=== PATIENT | female | born 1980 | race Caucasian/White ===

== ENCOUNTER 2016-12-23 23:14 | Emergency (ER) | payer OTHER ==
[2016-12-23 23:37] VITALS: RESP 18; TEMP 98
[2016-12-24] MEDS ORDERED: IBUPROFEN 600 MG TAB PO STA (00:35)
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
--- NOTE | 2016-12-24 01:36 | XR ---
EXAM: XR Left Foot Complete, 3 or More Views. CLINICAL HISTORY: Reason: Pain TECHNIQUE: Frontal, lateral and oblique views of the left foot. COMPARISON: No relevant prior studies available. FINDINGS: Bones/joints: Unremarkable. No acute fracture. No dislocation. Tiny achilles enthesophyte. Soft tissues: Unremarkable. No radiopaque foreign body. IMPRESSION: Normal left foot x-rays.
--- NOTE | 2016-12-24 01:36 | XR ---
EXAM: XR Left Knee, 3 views. CLINICAL HISTORY: Reason: Pain TECHNIQUE: Three views of the left knee. COMPARISON: No relevant prior studies available. FINDINGS: Bones/joints: Unremarkable. No acute fracture. No dislocation. Soft tissues: Unremarkable. IMPRESSION: Normal left knee x-rays.
[2016-12-24 02:28] VITALS: BP 167/89; PULSE 79
== END 2016-12-24 02:22 | disposition home or self-care (01) ==
LOC: EC 23:14
DX: S93.602A Unspecified sprain of left foot, initial encounter (principal); S80.02XA Contusion of left knee, initial encounter; W10.9XXA Fall (on) (from) unspecified stairs and steps, initial encounter
CPT/HCPCS: 99283

== ENCOUNTER → 2021-05-18 | Outpatient (CLI) | payer OTHER ==
--- NOTE | 2021-05-20 11:48 | MM ---
Reason for exam: screening (asymptomatic). Baseline mammogram. History: Patient has history of other cancer at age 20. Family history of breast cancer in maternal grandmother at age 5. Took hormonal contraceptives for 1 year beginning at age 21. Physical Findings: Nurse did not find any significant physical abnormalities on exam. MG Screening Mammo w CAD Bilateral CC and MLO view(s) were taken. There are scattered fibroglandular densities. There is no discrete abnormality. ASSESSMENT: Benign, BI-RAD 2 RECOMMENDATION: Routine screening mammogram of both breasts in 1 year.
== END | disposition home or self-care (01) ==
LOC: RADMAMWWP 14:33
PROVIDERS: ATTEND Obstetrics & Gynecology
DX: Z12.31 Encounter for screening mammogram for malignant neoplasm of breast (principal); Z85.9 Personal history of malignant neoplasm, unspecified; Z80.3 Family history of malignant neoplasm of breast; Z79.3 Long term (current) use of hormonal contraceptives
CPT/HCPCS: 77067

== ENCOUNTER → 2022-04-24 | Outpatient (CLI) | payer OTHER ==
--- NOTE | 2022-04-24 13:07 | CT ---
EXAMINATION TYPE: CT abdomen pelvis wo con CT DLP: 1394.4 mGycm, Automated exposure control for dose reduction was used. DATE OF EXAM: 04/24/2022 12:47 PM COMPARISON: None. CLINICAL INDICATION:Female, 41 years old with history of Right side abd pain R10.9; TECHNIQUE: Standard CT of the abdomen and pelvis following the administration of oral contrast. Cor onal and sagittal reformats were performed. FINDINGS: Limited examination due to lack of IV contrast. LOWER CHEST: Unremarkable ABDOMEN LIVER: Unremarkable noncontrast appearance. GALLBLADDER AND BILE DUCTS: Calcified gallstone identified. No surrounding inflammatory changes. No b iliary ductal dilatation. PANCREAS: Unremarkable noncontrast appearance. SPLEEN: Unremarkable noncontrast appearance. ADRENAL GLANDS: Unremarkable noncontrast appearance. KIDNEYS AND URETERS: No evidence of hydronephrosis or renal calculus. Lobulated appearance of the rig ht kidney. PELVIS BLADDER: Incompletely distended but grossly unremarkable. REPRODUCTIVE: Unremarkable. ABDOMEN & PELVIS STOMACH AND BOWEL: Stomach and duodenum are unremarkable. Enteric contrast reaches the splenic flexur e. There is a structure that appears to be the appendix which is not dilated or has any inflammatory changes. No focal wall thickening. No pneumatosis or portal venous gas. No colonic diverticulosis. No evidence of bowel obstruction. PERITONEUM: No evidence of pneumoperitoneum or free fluid. VASCULATURE: No evidence of aortic aneurysm. MUSCULOSKELETAL: No acute osseous abnormalities LYMPH NODES: No gross evidence for lymphadenopathy. SOFT TISSUE/ABDOMINAL WALL: Small fat filled umbilical hernia. IMPRESSION: 1. No acute abdominal/pelvic process. 2. Cholelithiasis.
== END | disposition home or self-care (01) ==
LOC: RADCTMAIN 10:58
PROVIDERS: ATTEND Family Medicine
DX: K80.20 Calculus of gallbladder without cholecystitis without obstruction (principal)
CPT/HCPCS: 74176

== ENCOUNTER → 2022-06-16 | Outpatient (CLI) | payer OTHER ==
--- NOTE | 2022-06-16 14:48 | US ---
EXAMINATION TYPE: US pelvic complete DATE OF EXAM: 06/16/2022 COMPARISON: NONE CLINICAL HISTORY: N93.8 DYSPUNCTIONAL BLEEDING. DUB x 1 year, tubal ligation, pre ablation US TECHNIQUE: TA. Transabdominal sonographic images of the pelvis were acquired. Date of LMP: unknown EXAM MEASUREMENTS: Uterus: 10.9 x 5.4 x 3.9 cm Endometrial Stripe: 1.2 cm Right Ovary: 2.4 x 1.5 x 1.9 cm Left Ovary: 2.2 x 2.0 x 1.3 cm 1. Uterus: Anteverted wnl 2. Endometrium: wnl 3. Right Ovary: wnl 4. Left Ovary: wnl 5. Bilateral Adnexa: wnl 6. Posterior cul-de-sac: wnl IMPRESSION: No discrete abnormality appreciated.
[2022-06-17 00:56] LABS: HCT 40.2 % (37.2-46.3); HGB 12.1 g/dL (12.0-15.0); MCH 24.2 pg (27.0-32.0); MCHC 30.1 g/dL (32.0-37.0); MCV 80.4 fL (80.0-97.0); Mean Platelet Volume 9.7 fL (9.5-12.2); NRBC Per 100 WBC 0 /100 WBCS (0.0-0.0); Platelet Count 315 X 10*3/uL (140-440); RDW 15.1 % (11.5-14.5); T4, Free (Free Thyroxine) 2.05 ng/dL (0.800-1.800)
== END | disposition home or self-care (01) ==
LOC: RADUSWWP 14:12
PROVIDERS: ATTEND Obstetrics & Gynecology
DX: N93.8 Other specified abnormal uterine and vaginal bleeding (principal)
CPT/HCPCS: 76856; 84439; 84443; 85027

== ENCOUNTER → 2022-08-12 | Outpatient (CLI) | payer OTHER ==
[2022-08-12 16:18] LABS: Basophils # (A) 0.03 X 10*3/uL (0.00-0.10); Basophils % (A) 0.4 %; Eosinophils # (A) 0.17 X 10*3/uL (0.04-0.35); Eosinophils % (A) 2.3 %; HCT 42.6 % (37.2-46.3); HGB 12.9 g/dL (12.0-15.0); Immature Grans, Automated 0.1 %; Lymphocytes # (A) 2.02 X 10*3/uL (0.90-5.00); MCH 23.5 pg (27.0-32.0); MCHC 30.3 g/dL (32.0-37.0); MCV 77.5 fL (80.0-97.0); Mean Platelet Volume 10.3 fL (9.5-12.2); Monocytes # (A) 0.58 X 10*3/uL (0.20-1.00); Monocytes % (A) 7.7 %; NRBC Per 100 WBC 0 /100 WBCS (0.0-0.0); Neutrophils # (A) 4.68 X 10*3/uL (1.80-7.70); Neutrophils % (A) 62.5 %; Platelet Count 357 X 10*3/uL (140-440); RDW 15.3 % (11.5-14.5); WBC 7.49 X 10*3/uL (4.50-10.00)
== END | disposition home or self-care (01) ==
LOC: LABWHC1 11:53
PROVIDERS: ATTEND Obstetrics & Gynecology
DX: Z01.812 Encounter for preprocedural laboratory examination (principal)
CPT/HCPCS: 36415; 85025

== ENCOUNTER 2022-08-18 06:19 | Day surgery (SDC) | payer OTHER ==
[2022-08-15 15:43] VITALS: BMI 43.8
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
[~2022-08-18 06:19] MED LIST: Pre Op ABX Message 1 EACH MISC MISCELLANE ONE
[2022-08-18] MEDS ORDERED: ONDANSETRON 4 MG/2 ML VIAL IVP ONE (06:31)
[2022-08-18] MEDS ORDERED: MIDAZOLAM 2 MG/2 ML VIAL IV PRN (06:31)
[2022-08-18] MEDS ORDERED: DEXAMETHASONE SOD PHOSPHATE 4 MG/ML 1 ML VIAL IV ONE (06:31)
[2022-08-18] MEDS ORDERED: SCOPOLAMINE 1 MG/72 HR PATCH TRANSDERM ONE (06:31)
[2022-08-18] MEDS ORDERED: LACTATED RINGERS 1,000 ML IV SCH (06:31)
[2022-08-18] MEDS ORDERED: PROPOFOL 10 MG/ML 20 ML VIAL IV ONE (07:10)
[2022-08-18] MEDS ORDERED: LIDOCAINE 2% INJ 20 MG/ML (2 ML VIAL) ONE (07:10)
[2022-08-18] MEDS ORDERED: SUCCINYLCHOLINE CHLORIDE 200 MG/10 ML VIAL IV ONE (07:10)
[2022-08-18] MEDS ORDERED: fentaNYL (PF) 50 MCG/ML 2 ML AMP ONE (07:10)
[2022-08-18] MEDS ORDERED: MIDAZOLAM 2 MG/2 ML VIAL ONE (07:10)
[2022-08-18] MEDS ORDERED: KETOROLAC 15 MG/ML 1 ML VIAL ONE (07:10)
--- NOTE | 2022-08-18 07:38 | P.OP ---
Date of Procedure: 08/18/22 Preoperative Diagnosis: Dysfunctional uterine bleeding Postoperative Diagnosis: Same Procedure(s) Performed: Dilation and curettage with hysteroscopy and NovaSure endometrial ablation Anesthesia: DESTINI Surgeon: Radha Schaffer Estimated Blood Loss (ml): 5 Pathology: other (Endometrial curettings) Condition: stable Disposition: same day Indications for Procedure: This is a 41-year-old female 3 para 3 who presents for dilation and curettage with hysteroscopy and NovaSure endometrial ablation due to dysfunctional uterine bleeding. She complains of very heavy bleeding with cramping and a lot of clots during her cycles. Sometimes her menses are up to 1 week late and sometimes she has bleeding that lasts up to 14 days. This has been occurring for approximately 1 year. Her pelvic ultrasound showed a uterus measuring 10.9 x 5.4 x 3.9 cm with an endometrial stripe thickness of 1.2 cm. Both ovaries appeared normal. She has previously had a tubal ligation. Operative Findings: Uterus is mid to anteverted position. No adnexal masses are palpated. Uterus is sounded to 12 cm and cervix is sounded to 4 cm. A dyssynchronous endometrial pattern is visualized. Both tubal ostia are visualized. A moderate amount of endometrial curettings are obtained. Description of Procedure: The patient is taken to the operating room. She is placed in the dorsal lithotomy position after general anesthesia was given. She is prepped and draped in the normal sterile fashion. Bladder is drained with a catheter and then removed. Pelvic exam is performed under anesthesia. Uterus is found to be mid to anteverted position with no adnexal masses. She is placed in slight Trendelenburg position. A right angle retractor is used to visualize the cervix. The anterior lip of the cervix is grasped with a Allis clamp. Cervix is sounded to 4 cm. Uterus is sounded to 12 cm. Cervix is gently dilated with Montaño dilators until a hysteroscope could be passed. Hysteroscopy is performed using normal saline. The above noted findings are noted. Next a polyp forceps is introduced. A small amount of tissue was obtained. Next medium-sized size sharp curette was placed. A moderate amount of endometrial curettings were obtained. Next NovaSure array was inserted into the endometrial cavity. Length was set at 6.5 cm and width was determined to be 4.6 cm. Next cavity assessment was completed and passed on the first try. Next NovaSure array was fired at 164 W for 51 seconds. Next the array was removed, inspected and then discarded. Next the hysteroscope was reinserted. Uniform charring was noted. Pictures were taken. Hysteroscope was removed. Allis clamp was removed from the anterior lip of the cervix. Minimal bleeding was noted. All other instruments removed from the vagina. Sponge counts were correct. Patient is taken to recovery room in stable condition.
[2022-08-18 08:03] VITALS: TEMP 98.6
[2022-08-18] MEDS: HYDROmorphone 0.5 MG/0.5 ML SYRINGE IVP PRN ×2 (08:10→08:30)
[2022-08-18 09:04] VITALS: BP 123/83; PULSE 76; RESP 16
== END 2022-08-18 09:13 | disposition home or self-care (01) ==
LOC: OR 06:19
PROVIDERS: ATTEND Obstetrics & Gynecology
DX: N93.8 Other specified abnormal uterine and vaginal bleeding (principal); J45.909 Unspecified asthma, uncomplicated; N28.9 Disorder of kidney and ureter, unspecified; K91.0 Vomiting following gastrointestinal surgery; F41.9 Anxiety disorder, unspecified; Z98.890 Other specified postprocedural states; Z98.51 Tubal ligation status; Z90.49 Acquired absence of other specified parts of digestive tract; Z83.3 Family history of diabetes mellitus; Z91.040 Latex allergy status; Z87.81 Personal history of (healed) traumatic fracture; Z87.442 Personal history of urinary calculi
CPT/HCPCS: 58563; 81025; 88305; J2250; J0330; J1100; J2405; J3010; J1885; J2704; J1170; J2001

== ENCOUNTER → 2023-03-16 | Outpatient (CLI) | payer OTHER ==
--- NOTE | 2023-03-19 09:52 | MM ---
Reason for Exam: Screening (asymptomatic). Last mammogram was performed 1 year(s) and 9 month(s) ago. Patient History: Menarche at age 16. First Full-Term at age 20. Other cancer, age 20. Hormonal Contraceptives for 1 year from age 21 until age 21. Maternal grandmother had breast cancer, age 50. Last menstrual period: 03/16/2023 Risk Values: Rona 5 year model risk: 0.4%. Prior Study Comparison: 05/18/2021 Bilateral Screening Mammogram, [facility]. Tissue Density: The breast tissue is heterogeneously dense. This may lower the sensitivity of mammography. Findings: Analyzed By CAD. There is no suspicious group of microcalcifications or new suspicious mass in either breast. Overall Assessment: Negative, BI-RAD 1 Management: Screening Mammogram of both breasts in 1 year. . Patient should continue monthly self-breast exams. A clinical breast exam by your physician is recommended on an annual basis. This exam should not preclude additional follow-up of suspicious palpable abnormalities. Note on Rona scores and lifetime risk: 1. A Rona score greater than 3% is considered moderate risk. If this is the case, consider specialist referral to assess eligibility for a risk reducing agent. 2. If overall lifetime risk for the development of breast cancer is 20% or higher, the patient may qualify for future screening with alternating mammogram and breast MRI. Electronically signed and approved by: Ermias Lozano M.D. Radiologis
== END | disposition home or self-care (01) ==
LOC: RADMAMWWP 07:39
PROVIDERS: ATTEND Family Medicine
DX: Z12.31 Encounter for screening mammogram for malignant neoplasm of breast (principal); Z80.3 Family history of malignant neoplasm of breast
CPT/HCPCS: 77067

== ENCOUNTER → 2024-08-18 | Outpatient (CLI) | payer BC ==
--- NOTE | 2024-08-19 12:13 | MM ---
Reason for Exam: Screening (asymptomatic). Last mammogram was performed 1 year(s) and 6 month(s) ago. Patient History: Menarche at age 16. First Full-Term at age 20. Other cancer, age 20. Hormonal Contraceptives for 1 year from age 21 until age 21. Maternal grandmother had breast cancer, age 50. Risk Values: Rona 5 year model risk: 0.4%. NCI Lifetime model risk: 6.6%. Prior Study Comparison: 05/18/2021 Bilateral Screening Mammogram, [facility]. 03/16/2023 Bilateral MG screening mammo w CAD, [facility]. Tissue Density: There are scattered areas of fibroglandular density. Findings: Analyzed By CAD. Right breast: There is no suspicious group of microcalcifications or new suspicious mass. Left breast: There is no suspicious group of microcalcifications or new suspicious mass. Overall Assessment: Negative, BI-RAD 1 Management: Screening Mammogram of both breasts in [address] [facility] will attempt to contact patient to return for supplemental views and ultrasound if indicated. Patient should continue monthly self-breast exams. A clinical breast exam by your physician is recommended on an annual basis. This exam should not preclude additional follow-up of suspicious palpable abnormalities. Note on Rona scores and lifetime risk: 1. A Rona score greater than 3% is considered moderate risk. If this is the case, consider specialist referral to assess eligibility for a risk reducing agent. 2. If overall lifetime risk for the development of breast cancer is 20% or higher, the patient may qualify for future screening with alternating mammogram and breast MRI. [facility], , 08/19/2024 12:08 PM. Electronically signed and approved by: Abimael Stokes DO
== END | disposition home or self-care (01) ==
LOC: RADMAMWWP 15:53
PROVIDERS: ATTEND Family Medicine
DX: Z12.31 Encounter for screening mammogram for malignant neoplasm of breast (principal); Z80.3 Family history of malignant neoplasm of breast; R92.323 Mammographic fibroglandular density, bilateral breasts
CPT/HCPCS: 77067